=== PATIENT | male | born 2000 | race Caucasian/White ===

== ENCOUNTER 2023-01-30 20:06 | Emergency (ER) | payer OTHER ==
[~2023-01-30] VITALS: Ht 172.7 cm; Wt 73.0 kg
[2023-01-30] MEDS ORDERED: QUET25TA36 PO (20:21)
[2023-01-30 21:43] LABS: BASOPHILS % (AUTO) 0.1 % (0.0-2.0); EOSINOPHILS % (AUTO) 0.1 % (1.0-6.0); HEMATOCRIT 44.2 % (41-53); HEMOGLOBIN 15.3 g/dL (13.5-17.5); LYMPHOCYTES # (AUTO) 0.7 K/uL (1.0-4.8); LYMPHOCYTES % (AUTO) 10.6 % (22.0-44.0); MEAN CORPUSCULAR HEMOGLOBIN 33.9 pg (26.0-34.0); MEAN CORPUSCULAR HGB CONC 34.6 G/dL (31.0-37.0); MEAN CORPUSCULAR VOLUME 98 fL (80-100); MONOCYTES # (AUTO) 0.5 K/uL (0.1-1.0); MONOCYTES % (AUTO) 7.6 % (2.0-9.0); NEUTROPHILS # (AUTO) 5.7 K/uL (1.8-7.7); NEUTROPHILS % (AUTO) 81.6 % (40.0-70.0); PLATELET COUNT (AUTO) 280 K/uL (150-450); RED BLOOD CELL COUNT(AUTO) 4.51 MIL/uL (4.50-5.90); RED CELL DISTRIBUTION WIDTH 13.6 % (11.5-14.5)
[2023-01-30 21:53] LABS: ANION GAP 4 mmol/L (8-16); CARBON DIOXIDE 31 mmol/L (22-29); CHLORIDE 99 mmol/L (98-107); GLOMERULAR FILTR. RATE CALC > 60 mL/min (>60); GLUCOSE,RANDOM 105 mg/dL (70-110); POTASSIUM 3.3 mmol/L (3.5-5.1); SODIUM SERUM 134 mmol/L (136-145)
[2023-01-30 21:56] LABS: PROTHROMBIN TIME 10.4 SEC (9.4-11.6)
[2023-01-30 21:59] LABS: ALANINE AMINOTRANSFERASE 23 U/L (12-78); ALBUMIN 3.8 g/dL (3.4-5.0); ALKALINE PHOSPHATASE 52 U/L (46-116); ASPARTATE AMINOTRANSFERASE 18 U/L (15-37); BILIRUBIN,TOTAL 1.3 mg/dL (0.1-1.0); LIPASE 29 U/L (73-393)
[2023-01-30] MEDS ORDERED: PANTOPRAZOLE SODIUM 40 MG/VIAL IVP ONE (22:45)
[2023-01-30] MEDS ORDERED: ONDANSETRON HCL 4 MG/2 ML VIAL IVP ONE (22:45)
[2023-01-30 23:14] VITALS: BP 119/63
== END 2023-01-30 23:13 | disposition home or self-care (01) ==
LOC: EMS 20:08
DX: K29.20 Alcoholic gastritis without bleeding (principal); F10.20 Alcohol dependence, uncomplicated; Z98.890 Other specified postprocedural states; Y90.9 Presence of alcohol in blood, level not specified
CPT/HCPCS: 99285; 96374; 71045; 96375; 80053; 83690; 85025; 85610; 85730; 36415; 93005; G0480; C9113

== ENCOUNTER 2023-05-22 18:20 | Emergency (ER) | payer OTHER ==
[~2023-05-22] VITALS: Ht 172.7 cm; Wt 70.9 kg
[~2023-05-22 18:20] MED LIST: QUET25TA36 PO
[2023-05-22 18:28] VITALS: BP 134/64; PULSE 82; RESP 18; TEMP 98.3
[2023-05-22] MEDS ORDERED: IBUP-1492 PO (18:52)
[2023-05-22] MEDS ORDERED: DOXY-354 PO (18:52)
[2023-05-22] MEDS ORDERED: DOXYCYCLINE HYCLATE 100 MG TABLET PO ONE (19:00)
[2023-05-22] MEDS ORDERED: IBUPROFEN 600 MG TABLET PO ONE (19:00)
== END 2023-05-22 19:09 | disposition home or self-care (01) ==
LOC: EMS 18:23
DX: L03.011 Cellulitis of right finger (principal); F10.20 Alcohol dependence, uncomplicated; Z98.890 Other specified postprocedural states; Y90.9 Presence of alcohol in blood, level not specified
CPT/HCPCS: 99283

== ENCOUNTER 2023-07-08 15:18 | Emergency (ER) | payer OTHER ==
[~2023-07-08] VITALS: Ht 172.7 cm; Wt 70.5 kg
[~2023-07-08 15:18] MED LIST changes: +DOXY-354 PO; +IBUP-1492 PO
[2023-07-08 15:23] VITALS: TEMP 98.7
[2023-07-08] MEDS ORDERED: VALA500T42 PO (17:35)
[2023-07-08 17:46] VITALS: BP 130/70; PULSE 90; RESP 16
== END 2023-07-08 17:47 | disposition home or self-care (01) ==
LOC: EMS 15:18
DX: B00.9 Herpesviral infection, unspecified (principal); F10.20 Alcohol dependence, uncomplicated; Z98.890 Other specified postprocedural states; Y90.9 Presence of alcohol in blood, level not specified
CPT/HCPCS: 99283; Z7502